=== PATIENT | male | born 1995 | race Caucasian/White ===

== ENCOUNTER 2019-04-19 21:06 | Emergency (ER) | payer OTHER ==
[~2019-04-19] VITALS: Ht 172.7 cm; Wt 84.8 kg
[2019-04-19 21:15] VITALS: BP 124/76
--- NOTE | 2019-04-19 21:21 | NUR ---
PT TO LOBBY W/ MOTHER.
--- NOTE | 2019-04-20 00:07 | NUR ---
PT AMBULATED TO BED 9
--- NOTE | 2019-04-20 00:39 | NUR ---
Dr. Jang examining patient.
--- NOTE | 2019-04-20 00:46 | NUR ---
COLLECTED STREP THROAT CULTURE.
--- NOTE | 2019-04-20 00:46 | NUR ---
24 Y/O MALE C/O CHILLS, WEAKNESS, VOMITING, POSSIBLE SYNCOPAL EPISODE WHEN VOMITING EARLIER. NO HEAD INJURY. PERRLA +3; REDNESS NOTED TO CHEEKS, PT THINKS MAY HAVE ALLERGY TO FOOD, NO SOB, NO SWELLING. PT AWAKE AND CALM. SIDE RAILS X1. ALLERGIES:NONE PMH:NONE
[2019-04-20 01:03] LABS: BASOPHILS % (AUTO) 0.1 % (0.0-2.0); EOSINOPHILS % (AUTO) 0.4 % (0.0-4.0); HEMOGLOBIN 16.6 g/dL (12.0-18.0); LYMPHOCYTES # (AUTO) 1.3 K/uL (2.0-11.5); LYMPHOCYTES % (AUTO) 11.5 % (20.5-51.1); MEAN CORPUSCULAR HEMOGLOBIN 29 pg (27-31); MEAN CORPUSCULAR HGB CONC 34 g/dL (33-37); MEAN CORPUSCULAR VOLUME 85.6 fL (80-94); MONOCYTES # (AUTO) 0.7 K/uL (0.8-1.0); MONOCYTES % (AUTO) 6.1 % (1.7-9.3); NEUTROPHILS % (AUTO) 81.9 % (42.2-75.2); PLATELET COUNT (AUTO) 256 K/uL (140-450); RED BLOOD CELL COUNT(AUTO) 5.73 MIL/uL (4.20-6.10); RED CELL DISTRIBUTION WIDTH 13.7 % (11.6-13.7)
[2019-04-20 01:22] LABS: ALBUMIN 4.5 g/dL (3.4-5.0); ANION GAP 10.8 (8-16); CARBON DIOXIDE 31.3 mmol/L (21-32); POTASSIUM 4.1 mmol/L (3.5-5.1); TOTAL BILIRUBIN 1.5 mg/dL (0.0-1.0)
[2019-04-20 01:35] LABS: APPEARANCE,URINE CLEAR (CLEAR); BILIRUBIN,URINE NEGATIVE (NEGATIVE); BLOOD, URINE NEGATIVE (NEGATIVE); COLOR,URINE YELLOW (YELLOW); LEUKOCYTE ESTERASE ,URINE NEGATIVE (NEGATIVE); NITRITE, URINE NEGATIVE (NEGATIVE); PH,URINE 6.5 (5.0-9.0); UGLUCOSE NEGATIVE (NEGATIVE)
[2019-04-20 02:00] LABS: CREATININE 1.3 mg/dL (0.7-1.3)
--- NOTE | 2019-04-20 03:49 | NUR ---
PO CHALLENGE DEMONSTRATED. . NOTIFIED.
--- NOTE | 2019-04-20 04:12 | NUR ---
Patient discharged with v/s stable. Written and verbal after care instructions given and explained. Patient verbalized understanding. Ambulatory with steady gait. All questions addressed prior to discharge. Advised to follow up with PMD.
[2019-04-20 04:13] VITALS: BP 124/76
== END 2019-04-20 04:12 | disposition home or self-care (01) ==
LOC: MED 21:06
DX: K52.9 Noninfective gastroenteritis and colitis, unspecified (principal); B34.9 Viral infection, unspecified
CPT/HCPCS: 36415; 71046; 80053; 81003; 83690; 85025; 87081; 99284